=== PATIENT | male | born 1990 | race Caucasian/White ===

== ENCOUNTER 2019-08-15 09:12 | Emergency (ER) | payer OTHER ==
--- NOTE | 2019-08-15 09:28 | PDOC ---
History of Present Illness - General Chief Complaint: Injury Stated Complaint: FACIAL LACERATION Time Seen by Provider: 08/15/19 09:16 History Source: Patient, Parent(s) Exam Limitations: No Limitations - History of Present Illness Initial Comments: 08/15/19 09:17 PCP: In [place] HPI: 29yo M presenting s/p hitting face getting into the car approximately 10 min [employer] with left-sided facial laceration. Reports he was getting into a small car, didn't open his door wide enough and struck his face just above his left eye on the corner of the door. Reports profuse bleeding, held pressure, went home and cleaned the wound with water and peroxide. Patient denies loss of consciousness, bleeding disorders, anticoagulation. Reports tetanus shot likely within last 10 years but not last 5. All: nkda Meds: denies PMH: denies PSH: denies Past History - Past Medical History Allergies/Adverse Reactions: Allergies Allergy/AdvReac Type Severity Reaction Status Date / Time No Known Allergies Allergy Verified 08/15/19 09:18 Home Medications: Ambulatory Orders NK [No Known Home Medication] 08/15/19 Review of Systems - Review of Systems Able to Perform ROS?: Yes Is the patient limited Iranian proficient: Yes Constitutional: No: Chills, Fever HEENTM: No: Recent change in vision, Nose Congestion, Throat Pain Respiratory: No: Cough, Shortness of Breath, Wheezing Cardiac (ROS): No: Chest Pain, Irregular Heart Rate ABD/GI: No: Constipated, Diarrhea, Nausea, Vomiting : No: Burning, Dysuria Musculoskeletal: No: Muscle Pain, Muscle Weakness Integumentary: Yes: Lesions. No: Erythema Neurological: No: Headache, Numbness, Tingling, Weakness Hematologic/Lymphatic: No: Anemia, Blood Clots, Easy Bleeding All Other Systems: Reviewed and Negative *Physical Exam - Physical Exam 08/15/19 09:47 WDWN male, appears stated age, no acute distress 1-1.5cm laceration, horizontal adjacent to and partially involving left eyebrow RRR, nl s1s2, no murmur appreciated CTABL, normal WOB, no wheezes / rales / rhonchi 2+ radial pulse, WWP, no clubbing / cyanosis / edema CN grossly intact, normal sensation and movement in the face Procedures - Laceration/Wound Repair Left Upper Face Wound Length: to 2.5 cm Wound Explored: clean Wound's Depth, Shape: superficial, linear Irrigated w/ Saline: No Betadine Prep: No (Water and peroxide [employer]) Wound Repaired With: Dermabond Layer Closure: No Sterile Dressing Applied: No (demabond, pt declined bandaid) Splint Applied: No Sling Applied: No Medical Decision Making - Medical Decision Making 08/15/19 09:50 29yo M with no PMH presenting with uncomplicated facial laceration. - Dermabond repair - Boostrix - Return precautions discussed Discharge - Discharge Information Problems reviewed: Yes Clinical Impression/Diagnosis: Laceration Condition: Improved Disposition: HOME - Admission No - Follow up/Referral - Patient Discharge Instructions Patient Printed Discharge Instructions: DI for Laceration Repair With Dermabond Additional Instructions: You were seen and evaluated in the [facility] for a laceration. Thank you for coming in. You were given a tetanus booster. Continue over the counter pain medication as directed on the package for local site pain. Do not pick at or otherwise remove the dermabond glue, it will dissolve on its own after several days. Please return with any new or concerning symptoms which may include but are not limited to laceration site warmth/redness/drainage/swelling, fevers and chills. - Post Discharge Activity
[2019-08-15] MEDS ORDERED: DIPHTH,PERTUSS(ACELL),TET 0.5 ML DISP.SYRIN IM ONE ×2 (09:31→09:38)
--- NOTE | 2019-08-15 09:32 | PDOC ---
Attending Attestation - Resident Resident Name: Cesario Chavez - ED Attending Attestation I have performed the following: I have examined & evaluated the patient, The case was reviewed & discussed with the resident, I agree w/resident's findings & plan, Exceptions are as noted - HPI HPI: 08/15/19 09:25 29y M presents with laceration to the L forehead. He was rushing when entering the car struck his head on the car door when getting in. Denies any LOC, n/v, headache, neck pain or any other injuries. Pt washed it out at home prior to arrival. last tetanus was more than 5 yeas ago but is uncertain of exact time frame. exam: approx 1cm laceration over the lateral aspect of L eyebrow wound was closed with dermabond with good approximation will update tetanus will dciwht supportive care - Physicial Exam PE: 08/16/19 19:30 see above - Medical Decision Making 08/16/19 19:30 see above
[2019-08-15 10:00] VITALS: BP 131/75; PULSE 84; TEMP 98.3; BMI 28.7
== END 2019-08-15 09:50 | disposition home or self-care (01) ==
LOC: FER 09:12
PROC: 0HQ1XZZ Repair Face Skin, External Approach (ICD-10-PCS; principal; 2019-08-15)
PROC: 3E0234Z Introduction of Serum, Toxoid and Vaccine into Muscle, Percutaneous Approach (ICD-10-PCS; 2019-08-15)
DX: S01.81XA Laceration without foreign body of other part of head, initial encounter (principal); W22.8XXA Striking against or struck by other objects, initial encounter; Y93.89 Activity, other specified; Y92.89 Other specified places as the place of occurrence of the external cause
CPT/HCPCS: 90715; 99282-25